=== PATIENT | female | born 1940 | race Caucasian/White ===

== ENCOUNTER 2022-08-21 12:49 | Emergency (ER) | payer OTHER, MEDICAID ==
[~2022-08-21] VITALS: Ht 157.5 cm; Wt 74.8 kg
[2022-08-21 12:57] VITALS: BP_SYST 228
[2022-08-21] MEDS ORDERED: PARO10TA75 PO (13:22)
[2022-08-21] MEDS ORDERED: LEVO25CA4 PO (13:22)
[2022-08-21] MEDS ORDERED: LOSA100T23 PO (13:22)
[2022-08-21] MEDS ORDERED: IRON-12 PO (13:22)
[2022-08-21] MEDS ORDERED: SOTA80TA PO (13:22)
[2022-08-21] MEDS ORDERED: ALBU2.5V7 INH (13:22)
[2022-08-21] MEDS ORDERED: DILT60CA PO (13:22)
[2022-08-21] MEDS ORDERED: SIMV-46 PO (13:22)
[2022-08-21] MEDS ORDERED: ALBU90AE INH (13:22)
[2022-08-21] MEDS ORDERED: ENALAPRILAT DIHYDRATE 1.25 MG/ML VIAL ONE (13:28)
[2022-08-21] MEDS ORDERED: ENALAPRILAT DIHYDRATE 1.25 MG/ML VIAL IVP ONE (13:30)
[2022-08-21 13:41] LABS: BASOPHILS # (AUTO) 0.1 K/uL (0.0-0.2); BASOPHILS % (AUTO) 1.1 % (0.0-2.0); EOSINOPHILS # (AUTO) 0.3 K/uL (0.0-0.4); EOSINOPHILS % (AUTO) 2.8 % (0.0-4.0); HEMATOCRIT 35.8 % (36-48); HEMOGLOBIN 11.5 g/dL (12.0-16.0); LYMPHOCYTES # (AUTO) 0.9 K/uL (1.0-5.5); LYMPHOCYTES % (AUTO) 9.7 % (20.5-51.5); MEAN CORPUSCULAR HEMOGLOBIN 26 pg (27-31); MEAN CORPUSCULAR HGB CONC 32 % (32-36); MEAN CORPUSCULAR VOLUME 80 fL (79.0-98.0); MONOCYTES # (AUTO) 0.4 K/uL (0.0-1.0); MONOCYTES % (AUTO) 4.8 % (1.7-9.3); NEUTROPHILS # (AUTO) 7.4 K/uL (1.8-7.7); NEUTROPHILS % (AUTO) 81.6 % (40.0-70.0); PLATELET COUNT (AUTO) 340 K/uL (130-430); RED BLOOD CELL COUNT(AUTO) 4.49 MIL/uL (4.2-6.2); RED CELL DISTRIBUTION WIDTH 26.9 % (9.0-15.0); WHITE BLOOD COUNT (AUTO) 9.1 K/uL (4.8-10.8)
--- NOTE | 2022-08-21 13:44 | NUR ---
BIBA WITH C/C OF HYPERTENSIVE URGENCY. PT STATED HER BP AT HOME WAS >200. ON ARRIVAL BP 204/74. REPORTED HAVING NAUSEA AT HOME THAT HAS NOW RESIDED. REPORTS SLIGHT YANEZ 2/. REPORTED PALPITATIONS THIS AM WHICH SHE DENIES NOW. 12L EKG DONE WITH SR NOTED. PLACED ON BAND ATTACHER WITH SB NOTED AT 53. IV ACCESS #20G INSERTED BY EMS PATENT WITHOUT INFILTRATE NOTED. CONDITION GUARDED. WILL CONT TO MONITOR.
[2022-08-21 13:45] LABS: ANION GAP 5 (5-15); CALCIUM 9.3 mg/dL (8.4-11.0); CHLORIDE 106 mmol/L (98-107); CREATININE 0.98 mg/dL (0.55-1.30); GLUCOSE 101 mg/dL (70-99); UREA NITROGEN, BLOOD 14 mg/dL (8-21)
--- NOTE | 2022-08-21 13:46 | NUR ---
Placed in room 2 . Placed on playground monitor, blood pressure machine and pulse oximeter. To gown for exam. Side rails up. Report given to
--- NOTE | 2022-08-21 13:47 | NUR ---
ER at bedside examining patient.
--- NOTE | 2022-08-21 13:48 | NUR ---
NEW ORDER FOR VASOTEC. VASOTEC GIVEN IVP DUE TO PT WITH MULTIPLE ALLERGIES. WILL CONT TO MONITOR CLOSELY.
[2022-08-21 14:02] LABS: ALANINE AMINOTRANSFERASE 13 U/L (12-78); ALBUMIN 3.1 g/dL (3.4-4.8); ASPARTATE AMINOTRANSFERASE 24 U/L (10-37); TOTAL BILIRUBIN 0.6 mg/dL (0.0-1.0)
[2022-08-21 17:09] VITALS: BP_SYST 156
--- NOTE | 2022-08-21 17:11 | NUR ---
PT CLEARED FOR DISCHARGE. PT TO BE PICKED UP BY HER SON-IN-LAW. PT PLACED IN LOBBY PER CN DUE TO NEEDING BED. NAD NOTED. DENIES ANY PAIN/N/V, PALPITATIONS. CONDITION STABLE FOR DC AT THIS TIME.
== END 2022-08-21 17:09 | disposition home or self-care (01) ==
LOC: SED 12:49
DX: I10 Essential (primary) hypertension (principal); R51.9 Headache, unspecified; R00.2 Palpitations; Z88.2 Allergy status to sulfonamides; Z88.5 Allergy status to narcotic agent; Z88.8 Allergy status to other drugs, medicaments and biological substances; Z91.041 Radiographic dye allergy status; Z79.899 Other long term (current) drug therapy
CPT/HCPCS: 36415; 71045; 80053; 83880; 84484; 85025; 93005; 96374; 99285